=== PATIENT | male | born 1985 | race Caucasian/White ===

== ENCOUNTER → 2017-12-08 | Outpatient (CLI) | payer BC ==
--- NOTE | 2017-12-08 10:44 | Diagnostic Imaging Report ---
INDICATION: Elevated liver enzymes. FINDINGS: The liver is normal in size at 16 cm. No discrete liver mass is identified. The gallbladder is without stones or sludge. No wall thickening or pericholecystic fluid is identified. No definite biliary duct dilatation is seen. The pancreas is obscured. The right kidney is unremarkable. There is no ascites. IMPRESSION: Unremarkable right upper quadrant ultrasound. Dictated by: Dictated on workstation # [id number]
== END ==
LOC: RAD 09:19
PROVIDERS: ATTEND Family Medicine
DX: R94.5 Abnormal results of liver function studies (principal)
CPT/HCPCS: 76705

== ENCOUNTER 2020-03-10 11:27 | Emergency (ER) | payer BC ==
[~2020-03-10] VITALS: Ht 182 cm; Wt 118.0 kg
[2020-03-10] MEDS ORDERED: HYDROcodone/APAP 5 MG/325 MG (LORTAB) TAB PO ONE (11:45)
--- NOTE | 2020-03-10 11:59 | Diagnostic Imaging Report ---
INDICATION: Fall. Elbow pain. FINDINGS: There is fracture dislocation. The radial head and ulna are dislocated posteriorly with respect to the capitellum and trochlea. There is a portion of the olecranon process which is fractured and remains anterior. There is also a probable radial head fracture. IMPRESSION: Fracture dislocation of the radius and ulna. Dictated by: Dictated on workstation # [id number]
[2020-03-10] MEDS ORDERED: CITA40TA11 (12:01)
[2020-03-10] MEDS ORDERED: fentaNYL INJECTION 100 MCG/2 ML AMP IVP ONE (12:15)
[2020-03-10] MEDS ORDERED: ETOMIDATE IV SOLN 20 MG/10 ML VIAL IV ONE (12:15)
--- NOTE | 2020-03-10 12:15 | NUR ---
CONSENT FOR PROCEDURE SIGNED
--- NOTE | 2020-03-10 12:20 | ED Upper Extremity ---
General Chief Complaint: Upper Extremity Stated Complaint: FALL/L ELBOW/ARM INJ Nursing Triage Note: PT FELL AND CO OF L FOREARM PAIN Nursing Sepsis Screen: No Definite Risk Source: patient Exam Limitations: no limitations History of Present Illness Date Seen by Provider: Mar 10, 2020 Time Seen by Provider: 11:34 Initial Comments This 34-year-old gentleman presents to the emergency room after suffering a left arm injury from a fall. He tripped and caught himself with outstretched arms. He has disfigurement, pain, and swelling distal to the left elbow. Distal pulse and sensation is intact. He denies any other injury. Incident happened about 60-90 minutes prior to arrival. He arrives by private vehicle. Onset: just prior to arrival Allergies and Home Medications Allergies Coded Allergies: No Known Drug Allergies (Unverified , 03/10/20) Home Medications Hydrocodone/Acetaminophen 1 Each Tablet, 1 EACH PO Q4H PRN for PAIN-MODERATE (5- 7) Prescribed by: JOSE RAUL DAVIS on 03/10/20 1335 Patient Home Medication List Home Medication List Reviewed: Yes Review of Systems Constitutional: no symptoms reported EENTM: no symptoms reported Respiratory: no symptoms reported Cardiovascular: no symptoms reported Gastrointestinal: no symptoms reported Genitourinary: no symptoms reported Musculoskeletal: see HPI Skin: no symptoms reported Psychiatric/Neurological: No Symptoms Reported Past Ujpthwk-Huoxpj-Tqtzae Hx Past Med/Social Hx: Reviewed and Corrections made Patient Social History Alcohol Use: Denies Use Recreational Drug Use: No Smoking Status: Never a Smoker Recent Foreign Travel: No Contact w/Someone Who Travel: No Recent Infectious Disease Expo: No Recent Hopitalizations: No Physical Abuse: No Sexual Abuse: No Past Medical History Surgeries: No Respiratory: No Cardiac: No Neurological: No Genitourinary: No Gastrointestinal: No Musculoskeletal: No Endocrine: No HEENT: No Cancer: No Psychosocial: Yes (takes citalopram) Anxiety Integumentary: No Physical Exam Vital Signs Vital Signs - First Documented 03/10/20 03/10/20 11:35 12:54 Temp 36.2 Pulse 77 Resp 18 B/P (MAP) 102/65 (77) Pulse Ox 96 O2 Delivery OxyMask O2 Flow Rate 80.00 Capillary Refill : Less Than 3 Seconds Height, Weight, BMI Height: '" Weight: lbs. oz. kg; 35.00 BMI Method: General Appearance: WD/WN, no apparent distress HEENT: PERRL/EOMI, normal ENT inspection Neck: normal inspection Cardiovascular: normal peripheral pulses, regular rate, rhythm, no edema, no murmur Respiratory: lungs clear, normal breath sounds, no respiratory distress Shoulder: normal inspection, non-tender, no evidence of injury Elbow/Forearm: Left, bone tenderness, deformity, ecchymosis, limited ROM, pain, swelling Wrist: Yes normal inspection, Yes non-tender, Yes no evidence of injury, Yes normal ROM Hand: normal inspection, non-tender, no evidence of injury, normal ROM, Left Neurologic/Tendon: normal sensation, normal motor functions, normal tendon functions, responds to pain Neurologic/Psychiatric: aba therapist II-XII nml as tested, no motor/sensory deficits, alert, normal mood/affect, oriented x 3 Skin: normal color, warm/dry Procedures/Interventions Splinting and Joint Reduction : Pre-Proc Neuro Vasc Exam: normal Post-Proc Neuro Vasc Exam: normal Reduction Attempts: 1 Pre-Procedure NV Exam: Yes post joint reduction film: joint reduced Progress After informed consent patient underwent conscious sedation with etomidate 20 mg IV and fentanyl 100 g IV. Adequate sedation was achieved and joint was reduced with manual traction and rotation. The arm was placed in an Ortho-Glass splint and sling. Sensation, movement and capillary refill were intact in the fingers after reduction and splinting. Postreduction x-ray was obtained showing good reduction of the joint. There were intra-articular avulsion type fractures of the radial head and possibly the ulna as well. Patient had reduced pain after reduction. Arm Sling: Large Hand-Made Type: fiberglass Splint Application: Long Arm Progress/Results/Core Measures Results/Orders My Orders Orders - JOSE RAUL AMBRIZ MD Hydrocodone/Apap 5/325 Tablet (Lortab 5 (03/10/20 11:45) Elbow, Left, 3 Views (03/10/20 11:39) Fentanyl Injection (Sublimaze Injection (03/10/20 12:15) Etomidate Injection (Amidate Injection) (03/10/20 12:15) Ed Iv/Invasive Line Start (03/10/20 12:02) Elbow, Left, 2 Views (03/10/20 12:51) Medications Given in ED Current Medications Medications Dose Ordered Sig/Ana Route Start Time Stop Time Status Last Admin Dose Admin Acetaminophen/ Hydrocodone Bitart 1 tab ONCE ONCE PO 03/10/20 11:45 03/10/20 11:46 DC 03/10/20 11:55 1 TAB Etomidate 0.2-0.6 MG/KG ONCE ONCE IV 03/10/20 12:15 03/10/20 12:16 DC 03/10/20 12:34 20 MG Fentanyl Citrate 100 mcg ONCE ONCE IVP 03/10/20 12:15 03/10/20 12:16 DC 03/10/20 12:33 100 MCG Vital Signs/I&O 03/10/20 03/10/20 03/10/20 11:35 12:54 13:53 Temp 36.2 36.2 Pulse 77 77 Resp 18 18 B/P (MAP) 102/65 (77) 121/64 (77) Pulse Ox 96 96 O2 Delivery OxyMask OxyMask O2 Flow Rate 80.00 3.00 3.00 Blood Pressure Mean: 77 Progress Progress Note : Progress Note Patient was given hydrocodone. X-rays were obtained and a dislocation of the left elbow is noted with associated fractures. Patient was sedated with etomidate and fentanyl. There was successful reduction of the dislocation. Dr. Costello was contacted. He advises referral to an upper extremity subspecialists. I spoke with Dr. Reaves at [facility]. He accepted the patient in follow-up in the clinic later this week. Diagnostic Imaging Diagonstic Imaging: Xray Plain Films/CT/US/NM/MRI: elbow Comments Elbow x-ray viewed by me and report reviewed. See report below: NAME: CANDACE SANTO JR [facility] REC#: [id number] PT STATUS: REG ER : 1985 PHYSICIAN: JOSE RAUL AMBRIZ MD ADMIT DATE: 03/10/20/ER Signed Date of Exam:03/10/20 ELBOW, LEFT, 3 VIEWS INDICATION: Fall. Elbow pain. FINDINGS: There is fracture dislocation. The radial head and ulna are dislocated posteriorly with respect to the capitellum and trochlea. There is a portion of the olecranon process which is fractured and remains anterior. There is also a probable radial head fracture. IMPRESSION: Fracture dislocation of the radius and ulna. Dictated by: Dictated on workstation # [id number] Dict: 03/10/20 1155 Trans: 03/10/20 1201 CV [id number] Interpreted by: JESUS HEARN MD Electronically signed by: JESUS HEARN MD 03/10/20 1201 Diagonstic Imaging: Xray Plain Films/CT/US/NM/MRI: elbow Comments Postreduction view of the elbow viewed by me and report reviewed. See report below: NAME: CANDACE SANTO JR [facility] REC#: [id number] PT STATUS: REG ER : 1985 PHYSICIAN: JOSE RAUL AMBRIZ MD ADMIT DATE: 03/10/20/ER Draft Date of Exam:03/10/20 ELBOW, LEFT, 2 VIEWS INDICATION: Post reduction film. FINDING: There has been realignment of the radius and ulna with the capitellum and trochlea. There is a comminuted fracture along the anterior aspect of the radial head involving articulating surface with some displacement. There is also a fragment noted anteriorly which may be arising from the olecranon process as well. IMPRESSION: 1. Satisfactory post reduction of radius and ulna at the elbow. 2. Comminuted articular fracture of the radial head with probable fracture of the tip of olecranon as well. Dictated on workstation # [id number] Dict: 03/10/20 1304 Trans: 03/10/20 1307 CVB [id number] Interpreted by: JESUS HEARN MD Departure Impression Primary Impression: Left elbow fracture Qualified Codes: S42.402A - Unspecified fracture of lower end of left humerus, initial encounter for closed fracture Additional Impressions: Dislocation of left elbow Qualified Codes: S53.105A - Unspecified dislocation of left ulnohumeral joint, initial encounter Fall on same level from tripping as cause of accidental injury Disposition: HOME, SELF-CARE Condition: Improved Departure-Patient Inst. Referrals: VIMAL MANDUJANO DO (PCP/Family) Primary Care Physician Patient Instructions: Dislocated Elbow, Elbow Fracture (DC), How to Use a Shoulder Sling, SPLINT CARE Add. Discharge Instructions: Keep your arm in the splint and sling. You may ice in 20 minute intervals to help reduce pain and swelling. Use your pain medication as prescribed. You may wish to take a stool softener such as Colace to prevent constipation from the pain medications. Please follow-up at the [facility] orthopedic clinic with either Dr. Reaves or Dr. Jameson. They have clinic hours on Wednesday, , and Wednesday. Please call on Wednesday to make an appointment at [phone]. Return to the emergency room if you have any further problems or concerns until then. All discharge instructions reviewed with patient and/or family. Voiced unde rstanding. Scripts Hydrocodone/Acetaminophen (Hydrocodone-Acetamin 5-325 mg) 1 Each Tablet 1 EACH PO Q4H PRN for PAIN-MODERATE (5-7), #30 TAB Prov: JOSE RAUL AMBRIZ MD 03/10/20 Copy Copies To 1: VIMAL MANDUJANO JOSHUA T MD Mar 10, 2020 12:20
--- NOTE | 2020-03-10 12:46 | NUR ---
PT WAKING UP TAKING W STAFF, STATES L ARM FEELS BETTER, DR DAVIS SLINTING PT L ELBOW
--- NOTE | 2020-03-10 13:00 | NUR ---
1222 FENTYL 100MCG GIVEN ORDERED 1236 ETOMIDATE 100MG IV GIVEN ORDERED
--- NOTE | 2020-03-10 13:01 | NUR ---
SEE COPY FOR VS DURING SEDATION.
--- NOTE | 2020-03-10 13:07 | Diagnostic Imaging Report ---
INDICATION: Post reduction film. FINDING: There has been realignment of the radius and ulna with the capitellum and trochlea. There is a comminuted fracture along the anterior aspect of the radial head involving articulating surface with some displacement. There is also a fragment noted anteriorly which may be arising from the olecranon process as well. IMPRESSION: 1. Satisfactory post reduction of radius and ulna at the elbow. 2. Comminuted articular fracture of the radial head with probable fracture of the tip of olecranon as well. Dictated by: Dictated on workstation # [id number]
--- NOTE | 2020-03-10 13:20 | NUR ---
Received report from KRISS Driver at this time to assume care of pt.
[2020-03-10] MEDS ORDERED: HYDR-83 PO (13:34)
[2020-03-10 13:53] VITALS: BP 121/64
== END 2020-03-10 13:54 | disposition home or self-care (01) ==
LOC: EDUNIT# 11:27 → ER 11:28
DX: S42.402A Unspecified fracture of lower end of left humerus, initial encounter for closed fracture (principal); W01.0XXA Fall on same level from slipping, tripping and stumbling without subsequent striking against object, initial encounter
CPT/HCPCS: 73070; 73080; 93041

== ENCOUNTER → 2020-07-24 | Outpatient (CLI) | payer BC ==
[~2020-07-24] MED LIST: ACHD5005 PO; CITA40TA11
== END ==
LOC: LABNPT 05:53
PROVIDERS: ATTEND Family Medicine
DX: U07.1 COVID-19 (principal); J06.9 Acute upper respiratory infection, unspecified
CPT/HCPCS: 87635

== ENCOUNTER → 2021-08-07 | Outpatient (CLI) | payer BC ==
--- NOTE | 2021-08-07 15:30 | Diagnostic Imaging Report ---
PROCEDURE: US Hepatic (Liver). TECHNIQUE: Multiple real-time grayscale images were obtained over the right upper quadrant in various projections. INDICATION: Elevated liver enzymes The previous hepatic ultrasound exam performed on 12/08/2017 failed to show any abnormality of the liver or the right upper quadrant. On this exam, the liver does not appear to be enlarged. There is no focal mass involving the liver and the biliary tree is not abnormally dilated. Spectral and color-flow imaging of the portal vein shows the vein is patent. The liver is more echogenic than usually seen and this does suggest fatty metamorphosis. There is no evidence for cholelithiasis or acute cholecystitis. The common bile duct, the pancreas and the proximal aorta were obscured by bowel gas. The mid and distal abdominal aorta are unremarkable as is the right kidney. IMPRESSION: 1. There is no acute abnormality in the right upper quadrant although the common bile duct, pancreas and proximal aorta were obscured. 2. The liver does not appear to be enlarged. 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 Dictated by: Dictated on workstation # [id number]
== END ==
LOC: RAD 09:15
PROVIDERS: ATTEND Family Medicine
DX: R94.5 Abnormal results of liver function studies (principal)
CPT/HCPCS: 76705

== ENCOUNTER → 2021-12-10 | Outpatient (CLI) | payer BC ==
[~2021-12-10] MED LIST changes: -CITA40TA11; +CITA40TA13
== END ==
LOC: LABNPT 06:28
PROVIDERS: ATTEND Family Medicine
DX: R68.89 Other general symptoms and signs (principal); Z20.822 Contact with and (suspected) exposure to COVID-19
CPT/HCPCS: 87635

== ENCOUNTER 2022-12-10 02:31 | Emergency (ER) | payer BC ==
[~2022-12-10] VITALS: Ht 183 cm; Wt 113.4 kg
[2022-12-10 02:45] VITALS: BP 126/82
--- NOTE | 2022-12-10 02:58 | ED Upper Extremity ---
General Chief Complaint: Upper Extremity Stated Complaint: FALL,RT ARM PAIN Source: patient Exam Limitations: no limitations History of Present Illness Date Seen by Provider: Dec 10, 2022 Time Seen by Provider: 02:50 Initial Comments 37yo male to the ER after getting up to go to the bathroom, stepped on the dog and fell forward onto an outstretched arm. He complains of pain with movement. no numbness, weakness to the arm/hand. DId not hit his head, no LOC. no complaints of any other injury. Onset: just prior to arrival Severity: mild Pain/Injury Location: right shoulder Method of Injury: fell Modifying Factors: Improves With Immobilization; Worse With Movement Allergies and Home Medications Allergies Coded Allergies: No Known Drug Allergies (Unverified , 03/10/20) Patient Home Medication List Home Medication List Reviewed: Yes Citalopram Hydrobromide (Citalopram HBr) 40 Mg Tablet, (Reported) Entered as Reported by: JAMES PATTERSON on 03/10/20 1201 Hydrocodone/Acetaminophen (Hydrocodone-Acetamin 5-325 mg) 1 Each Tablet, 1 EACH PO Q4H PRN for PAIN-MODERATE (5-7) Prescribed by: JOSE RAUL DAVIS on 03/10/20 1335 Review of Systems Constitutional: see HPI EENTM: no symptoms reported Respiratory: no symptoms reported Cardiovascular: no symptoms reported Gastrointestinal: no symptoms reported Musculoskeletal: joint pain (right shoulder) All Other Systems Reviewed Negative Unless Noted: Yes Past Biedayo-Xvimyk-Zacstr Hx Patient Social History Tobacco Use?: No Use of E-Cig and/or Vaping dev: No Substance use?: No Alcohol Use?: No Immunizations Up To Date Influenza Vaccine Up-to-Date: No; Not Current Past Medical History Surgeries: No Respiratory: No Cardiac: No Neurological: No Genitourinary: No Gastrointestinal: No Musculoskeletal: No Endocrine: No HEENT: No Cancer: No Psychosocial: Yes (takes citalopram) Anxiety Integumentary: No Physical Exam Vital Signs Vital Signs - First Documented 12/10/22 02:45 Temp 36.4 Pulse 68 Resp 20 B/P (MAP) 126/82 (97) Pulse Ox 98 O2 Delivery Room Air Capillary Refill : Height, Weight, BMI Height: '" Weight: lbs. oz. kg; 35.00 BMI Method: General Appearance: WD/WN, no apparent distress HEENT: PERRL/EOMI Cardiovascular: regular rate, rhythm, other (2+ radial pulses right wrist) Respiratory: chest non-tender, lungs clear, normal breath sounds, no respiratory distress, no accessory muscle use Shoulder: normal inspection, bone tenderness (AC joint space; no clavicle tenderness), limited ROM (active and passive extension, internal rotation and external rotation; ), pain Elbow/Forearm: normal inspection, non-tender, no evidence of injury, normal ROM, Right Wrist: Yes normal inspection, Yes non-tender, Yes no evidence of injury, Yes normal ROM Hand: normal inspection, non-tender, no evidence of injury, normal ROM, Right Neurologic/Psychiatric: alert, normal mood/affect, oriented x 3 Skin: normal color, warm/dry Progress/Results/Core Measures Results/Orders My Orders Orders - NILESH SANCHEZ MD Shoulder, Right, 3 Views (12/10/22 02:58) Vital Signs/I&O 12/10/22 02:45 Temp 36.4 Pulse 68 Resp 20 B/P (MAP) 126/82 (97) Pulse Ox 98 O2 Delivery Room Air Diagnostic Imaging Diagonstic Imaging: Xray Comments right shoulder - interpreted by me - no fracture or dislocation Departure Impression Primary Impression: Right shoulder strain Qualified Codes: S46.911A - Strain of unspecified muscle, fascia and tendon at shoulder and upper arm level, right arm, initial encounter Disposition: 01 HOME, SELF-CARE Condition: Stable Departure-Patient Inst. Decision time for Depature: 03:29 Referrals: VIMAL MANDUJANO DO (PCP/Family) Primary Care Physician Patient Instructions: Shoulder Sprain ED Add. Discharge Instructions: Take over the counter Ibuprofen 3 pills which is 600mg every 6 hours as needed for pain. Ice pack for swelling and discomfort. Follow up with your primary care doctor next week. Return to the ER for re-evaluation for any new, concerning or emergent symptoms. Copy Copies To 1: VIMAL MANDUJANO KATHRYN M MD Dec 10, 2022 02:58
--- NOTE | 2022-12-10 05:42 | Diagnostic Imaging Report ---
INDICATION: right shoulder injury COMPARISON: None. FINDINGS: 3 views of the right shoulder were obtained. There is no fracture, dislocation, or other acute bony abnormality identified. The soft tissues appear unremarkable. No radiopaque foreign body is identified. The visualized portions of the right lung are clear. IMPRESSION: No acute fractures or dislocations of the right shoulder. Dictated by: Dictated on workstation # [id number]
== END 2022-12-10 03:32 | disposition home or self-care (01) ==
LOC: EDUNIT# 02:31 → ER 02:35
DX: S46.911A Strain of unspecified muscle, fascia and tendon at shoulder and upper arm level, right arm, initial encounter (principal); Z28.310 Unvaccinated for COVID-19; W18.31XA Fall on same level due to stepping on an object, initial encounter
CPT/HCPCS: 73030